=== PATIENT | male | born 1975 | race African-American/Black ===

== ENCOUNTER 2016-12-03 18:38 | Emergency (ER) | payer MEDICAID ==
[2016-12-03] MEDS ORDERED: cloNIDine 0.1 MG Tab PO ONE (18:53)
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
[2016-12-03] MEDS ORDERED: Acetaminophen/HYDROcodone 325-10 MG Tab PO ONE (19:22)
== END 2016-12-03 19:45 | disposition home or self-care (01) ==
LOC: DL.ED 18:38
DX: S62.144A Nondisplaced fracture of body of hamate [unciform] bone, right wrist, initial encounter for closed fracture (principal); Y04.0XXA Assault by unarmed brawl or fight, initial encounter
CPT/HCPCS: 73120; 73130; 99283; A9270